=== PATIENT | male | born 1965 | race Caucasian/White ===

== ENCOUNTER 2018-01-07 16:12 | Emergency (ER) | payer BC ==
[~2018-01-07] VITALS: Ht 172.7 cm; Wt 86.2 kg
[2018-01-07 18:33] VITALS: BP 141/80
== END 2018-01-07 18:34 | disposition home or self-care (01) ==
LOC: M.ERS 16:12
DX: S61.011A Laceration without foreign body of right thumb without damage to nail, initial encounter (principal); Z87.442 Personal history of urinary calculi; W27.0XXA Contact with workbench tool, initial encounter; Y93.89 Activity, other specified; Y92.89 Other specified places as the place of occurrence of the external cause; Y99.8 Other external cause status

== ENCOUNTER 2020-11-20 08:34 | Emergency (ER) | payer BC ==
[~2020-11-20] VITALS: Ht 172.7 cm; Wt 90.7 kg
[2020-11-20] MEDS ORDERED: PREDNISONE 20 M20 M1 PO (08:55)
[2020-11-20] MEDS ORDERED: PATADAY5 ML OPHTHALMIC (09:40)
[2020-11-20 09:49] VITALS: BP 158/92
== END 2020-11-20 09:50 | disposition home or self-care (01) ==
LOC: M.ERS 08:34
DX: T78.49XA Other allergy, initial encounter (principal); Z87.442 Personal history of urinary calculi; Z90.49 Acquired absence of other specified parts of digestive tract; X58.XXXA Exposure to other specified factors, initial encounter